=== PATIENT | male | born 1960 | race Two or more races ===

== ENCOUNTER 2020-09-29 09:48 | Outpatient (CLI) | payer OTHER | END 2020-09-29 09:57 | disposition home or self-care (01) | LOC: RAD 09:48 | PROVIDERS: ATTEND Orthopaedic Surgery | DX: M25.562 Pain in left knee (principal) ==

== ENCOUNTER 2020-09-30 10:06 | Outpatient (CLI) | payer OTHER | END 2020-09-30 10:27 | disposition home or self-care (01) | LOC: RAD 10:06 | PROVIDERS: ATTEND Orthopaedic Surgery | DX: M25.562 Pain in left knee (principal); M23.92 Unspecified internal derangement of left knee; Q82.8 Other specified congenital malformations of skin | CPT/HCPCS: 73721 ==